=== PATIENT | male | born 1960 | race Caucasian/White ===

== ENCOUNTER 2018-01-08 11:36 | Emergency (ER) | payer BC ==
--- NOTE | 2018-01-08 12:49 | RAD ---
INDICATION: Left knee injury. TECHNIQUE: 4 views of the left knee were obtained. FINDINGS: The bones are normal alignment. There is a joint effusion present. No fracture is seen. There is mild to moderate osteoarthritic change in the medial compartment. IMPRESSION: JOINT EFFUSION, NO FRACTURE IS SEEN.
[2018-01-08] MEDS ORDERED: Ibuprofen TAB* 600 MG PO ONE (13:21)
[2018-01-08] MEDS ORDERED: HYDROcodone/ACETAMIN 5-325 MG* 1 TAB PO ONE (13:21)
--- NOTE | 2018-01-08 13:27 | ED ---
Lower Extremity - HPI Summary HPI Summary: 57 male presents to ED with complaints of left knee pain after an injury that he sustained yesterday, 01/07/18. Patient states he was sitting "chilean style" on his bed when he twisted and went to get up and felt a "sting" and has been unable to bear weight since. Has increased pain. Denies any obvious swelling or bruising. No numbness/tingling. Hurts to straighten it completely and with movement. No other complaints or PMHx other than HTN. States pain is on the outside of his left knee. States he did do this a few years ago as well. - History of Current Complaint Chief Complaint: EDExtremityLower Stated Complaint: LEFT KNEE PAIN Hx Obtained From: Patient Mechanism Of Injury: Twisted Onset of Pain: Immediate, Post Accident Onset/Duration: Worse Since - 1 Severity Initially: Mild Severity Currently: Moderate Pain Intensity: 6 Pain Scale Used: 0-10 Numeric Timing: Constant Location: Is Discrete @ - left lateral knee Character Of Pain: Sharp, Aching Associated Signs And Symptoms: Positive: Knee Pain - L Aggravating Factor(s): Ambulation, Weight Bearing Alleviating Factor(s): Rest Able to Bear Weight: No - due to pain/injury - Allergies/Home Medications Allergies/Adverse Reactions: Allergies Allergy/AdvReac Type Severity Reaction Status Date / Time MS Penicillins [Penicillins] Allergy Unknown Verified 07/09/16 17:38 Reaction Details PMH/Surg Hx/FS Hx/Imm Hx Endocrine/Hematology History: Denies: Hx Anticoagulant Therapy, Hx Diabetes Cardiovascular History: Reports: Hx Hypertension - Surgical History Surgery Procedure, Year, and Place: n/a - Immunization History Immunizations Up to Date: Yes Infectious Disease History: No Infectious Disease History: Denies: Traveled Outside the [place] in Last 30 Days - Family History Known Family History: Positive: Hypertension - Social History Alcohol Use: Daily Alcohol Amount: a few drinks daily Substance Use Type: Reports: None Smoking Status (MU): Former Smoker Review of Systems Constitutional: Negative Cardiovascular: Negative Respiratory: Negative Positive: Arthralgia, Myalgia, Decreased ROM - left knee Skin: Negative Neurological: Negative All Other Systems Reviewed And Are Negative: Yes Physical Exam Triage Information Reviewed: Yes Vital Signs On Initial Exam: Initial Vitals Temp Pulse Resp BP Pulse Ox 98.1 F 77 18 150/89 100 01/08/18 11:44 02/18/18 11:44 01/08/18 11:44 01/08/18 11:44 01/08/18 11:44 Vital Signs Reviewed: Yes Appearance: Positive: Well-Appearing, Well-Nourished, Pain Distress - mild to moderate pain Skin: Positive: Warm, Skin Color Reflects Adequate Perfusion, Dry. Negative: Cold, Numb, Cyanosis @, Erythema @ Head/Face: Positive: Normal Head/Face Inspection ENT: Positive: Pharynx normal Neck: Positive: Supple, Nontender Respiratory/Lung Sounds: Positive: Clear to Auscultation, Breath Sounds Present. Negative: Rales, Rhonchi, Wheezes Cardiovascular: Positive: Normal, RRR, Pulses are Symmetrical in both Upper and Lower Extremities - 2+ pedal. Negative: Murmur, Rub Musculoskeletal: Positive: Limited @ - with full extension and flexion of left knee however does have most ROM, with some discomfort., Pain @ - left knee, Edema Left - small, minimal amount noted on PE left, Other - no crepitus step off or obvious deformity, normal patella placement. Negative: Interruption @, Abnormal @ Neurological: Positive: Normal, Sensory/Motor Intact, Alert, Oriented to Person Place, Time, NV Bundle Intact Distally, Unable to Assess Gait Diagnostics - Vital Signs Vital Signs Temp Pulse Resp BP Pulse Ox 01/08/18 11:44 98.1 F 77 18 150/89 100 - Laboratory Lab Statement: Any lab studies that have been ordered have been reviewed, and results considered in the medical decision making process. - Radiology left knee Xray Interpretation: Positive (See Comments) - JOINT EFFUSION, NO FRACTURE IS SEEN. Radiology Interpretation Completed By: Radiologist Lower Extremity Course/Dx - Course Course Of Treatment: given ibuprofen and norco while in ED for pain. small joint effusion of left knee on xray no other abnormalities. knee immobilizer and crutches. RICE, analgesic and follow up with pcp. aware of worsening signs and symptoms to watch out for. no other concerns at this time. - Diagnoses Differential Diagnosis/HQI/PQRI: Positive: Contusion, Fracture (Closed), Sprain , Strain, Other - joint effusion Provider Diagnoses: Left knee sprain, Effusion of knee joint, left Discharge - Discharge Plan Condition: Stable Disposition: HOME Prescriptions: HYDROcodone/ACETAMIN 5-325 MG* [Upatoi 5-325 TAB*] 1 tab PO Q6H PRN #5 tab MDD 2 PRN Reason: Pain Ibuprofen TAB* [Motrin TAB* 600 MG] 600 mg PO Q6H PRN #25 tab PRN Reason: Pain Patient Education Materials: Knee Sprain (ED), Swollen Knee Joint (ED), Knee Immobilizer (ED) Referrals: Jerzy East MD [Medical Doctor] - Joce SANTA,Ash Staley [Primary Care Provider] - 1 Week Additional Instructions: Continue medication as prescribed for pain and inflammation. Do not bear weight. Wear immobilzer and use crutches for 2-3 days, or until symptoms improve and able to bear weight. Rest, ice and elevate. Wear compression brace to help with swelling and extra support. Any new or worsening symptoms (increased pain/swelling) please seek medical attention promptly. Follow up with PCP. Ortho only if complications or needed.
[2018-01-08 14:39] VITALS: BP 0/0
== END 2018-01-08 13:59 | disposition home or self-care (01) ==
LOC: ED 11:36
DX: S83.92XA Sprain of unspecified site of left knee, initial encounter (principal); X50.1XXA Overexertion from prolonged static or awkward postures, initial encounter; Y93.89 Activity, other specified; Y92.003 Bedroom of unspecified non-institutional (private) residence as the place of occurrence of the external cause; M25.462 Effusion, left knee; I10 Essential (primary) hypertension; Z88.0 Allergy status to penicillin; Z87.891 Personal history of nicotine dependence
CPT/HCPCS: 99282; A9270-GY